=== PATIENT | female | born 1980 | race African-American/Black ===

== ENCOUNTER 2017-01-24 14:45 | Emergency (ER) | payer OTHER ==
[2017-01-24 15:05] VITALS: BP 144/78; PULSE 122; TEMP 98.4; BMI 36.6
--- NOTE | 2017-01-24 15:26 | PDOC ---
Post Exposure HPI - General Chief Complaint: Blood/Body Fluid Exposure [facility] Stated Complaint: INJURY TO HAND (WORK RELATED) Time Seen by Provider: 01/24/17 15:07 History Source: Patient Exam Limitations: No Limitations - History of Present Illness Initial Comments: CHIEF COMPLAINT: 36 y/o female, [employer] worker, here after blood borne exposure. HISTORY OF PRESENT ILLNESS: The patient states she cut her left 2nd finger on a razor that one of her patient's was using to shave his face. The patient has no record of HIV or HEP B/HEP C, however he refused HIV testing. The patient states she washed her affected hand with soap and water and scrubbed the area with alcohol swabs. Vital signs on arrival are notable for pulse of 122. REVIEW OF SYSTEMS: GENERAL/CONSTITUTIONAL: Subjective fever/chills. No weakness. No weight change. HEAD, EYES, EARS, NOSE AND THROAT: No change in vision. No ear pain or discharge. No sore throat. CARDIOVASCULAR: No chest pain or shortness of breath. RESPIRATORY: No cough, wheezing, or hemoptysis. GASTROINTESTINAL: No abd pain, nausea, vomiting diarrhea. GENITOURINARY: No dysuria, frequency, or change in urination. MUSCULOSKELETAL: No joint or muscle swelling or pain. No neck or back pain. SKIN: +cut to left finger NEUROLOGIC: No headache, vertigo, loss of consciousness, or loss of sensation. PHYSICAL EXAM: GENERAL: The patient is awake, alert, and fully oriented, in no acute distress. HEAD: Normal with no signs of trauma. ENT: Pupils equal, round and reactive to light, extraocular movements intact, sclera anicteric, conjunctiva clear. Neck supple. LUNGS: Clear to auscultation bilaterally. Normal excursion. No respiratory distress or use of accessory muscles. CV: RRR, S1/S2, no MRG. Cap refill < 2 sec. ABDOMEN: Soft, non-distended, non-tender even to deep palpation, no hepatomegaly or splenomegaly, no masses. EXTREMITIES: Normal range of motion, no edema. NEUROLOGICAL: Normal speech, normal gait. CN II-XII grossly intact. PSYCH: Normal mood, normal affect. SKIN: Very small, 0.5cm cut to the tip of left 2nd digit in between nail bed and finger tip. No active bleeding Past History - Past Medical History Allergies/Adverse Reactions: Allergies No Known Allergies Allergy (Verified 01/24/17 15:01) Home Medications: Ambulatory Orders Hiv Post Exposure Prophylaxis 1 each PO ASDIR #1 kit 01/24/17 Raltegravir [Isentress -] 400 mg PO BID #50 tab 01/24/17 Raltegravir [Isentress -] 400 mg PO BID #60 tab 01/24/17 - Social History Smoking Status: Never smoked *Physical Exam - Vital Signs Last Vital Signs Temp Pulse Resp BP Pulse Ox 98.4 F 122 H 19 144/78 99 01/24/17 15:01 01/24/17 15:01 01/24/17 15:01 01/24/17 15:01 01/24/17 15:01 Post Exposure - ED Protocol - Exposure Treatment Washing/Decontamination: Other (Soap, water and alcohol) Source Patient HIV Status:: Unknown Is PEP indicated?: No Prophylaxis for HIV discussed?: Yes Prophylaxis given?: Yes Prophylaxis refused?: No Drug(s) Information Sheets given:: Yes Baseline bloods drawn prophylaxis:(use *Exposure-Hosp Emp): Yes - Referrals Employee Referred to [facility]:: Yes Other Post Exposure pt. referral to PCP: Yes Medical Decision Making - Medical Decision Making A/P: 36 y/o female with blood borne exposure. explained everything to the patient including risks. She is requesting prophylaxis. Plan is as follows: 1. Baseline labs 2. HIV prophylaxis The patient states she had vaccines for HepB However, she states she is not UTD on tetanus. Ordered tetanus Pt instructed to f/u at [facility]. The patient verbalizes understanding of all instructions, has no further questions and is awaiting discharge. *DC/Admit/Observation/Transfer Diagnosis at time of Disposition: Exposure to blood or body fluid - Discharge Dispostion Disposition: HOME Condition at time of disposition: Good - Prescriptions Prescriptions: Hiv Post Exposure Prophylaxis 1 each PO ASDIR #1 kit Raltegravir [Isentress -] 400 mg PO BID #60 tab Raltegravir [Isentress -] 400 mg PO BID #50 tab - Referrals Referrals: Chandler Phillip MD [Primary Care Provider] - - Patient Instructions Printed Discharge Instructions: How to Handle Body Fluid Exposure -- Healthcare Worker - Post Discharge Activity Work/School Note: Back to Work
[2017-01-24] MEDS ORDERED: HIV POST EXPOSURE PROPHYLAXIS KIT NR ONE (15:40)
[2017-01-24 15:43] LABS: BASOPHIL 0.4 % (0-2.0); EOSINOPHIL 0.5 % (0-4.5); MCHC 29.5 g/dl (32.0-36.0); MEAN CELL VOLUME 61.9 fl (80-96); MEAN PLT VOLUME 7.6 fl (7.5-11.1); NEUTROPHILS 73.6 % (42.8-82.8); PLATELET COUNT 412 K/MM3 (134-434); RDW 18.2 % (11.6-15.6); WHITE BLOOD COUNT 12.7 K/mm3 (4.0-10.0)
[2017-01-24 15:44] LABS: MCH 18.3 pg (25.7-33.7)
[2017-01-24] MEDS ORDERED: HIV POST EXPOSURE PROPHYLAXIS KIT PO ONE (15:45)
[2017-01-24 16:02] LABS: ANISOCYTOSIS 2+; HYPOCHROMIA 2+; MICROCYTOSIS 2+; OVALOCYTES FEW; PLATELET ESTIMATE INCREASED (NORMAL); POIKILOCYTOSIS 1+; POLYCHROMASIA 1+; TARGET CELLS 1+
[2017-01-24 16:10] LABS: ALBUMIN 3.6 g/dl (3.4-5.0); ANION GAP 9 (8-16); BILIRUBIN,TOTAL 0.2 mg/dL (0.2-1.0); CALCIUM 8.9 mg/dL (8.5-10.1); CHOLESTEROL 146 mg/dL (50-200); CO2 24 mmol/L (21-32); CREATININE 0.7 mg/dL (0.55-1.02); GLUCOSE,RANDOM 96 mg/dL (74-106); LDH 240 U/L (84-246); PHOSPHOROUS 1.6 mg/dL (2.5-4.9); SGOT/AST 15 U/L (15-37); SGPT/ALT 18 U/L (12-78); TOT PROT 7.8 g/dl (6.4-8.2); URIC ACID 1.9 mg/dL (2.6-7.2)
[2017-01-24 16:11] LABS: ALK PHOS 98 U/L (45-117)
[2017-01-24] MEDS ORDERED: TETANUS AND DIPHTHERIA TOXOID 0.5 ML DISP.SYRIN IM ONE (16:27)
[2017-01-24 17:59] LABS: HIV 1 & 2 AB NEGATIVE; HIV 1 AGp24 NEGATIVE
[2017-01-27 14:12] LABS: HEP B SURFACE AB Reactive (.)
== END 2017-01-24 18:16 | disposition home or self-care (01) ==
LOC: JERFT 14:45
PROC: 3E0234Z Introduction of Serum, Toxoid and Vaccine into Muscle, Percutaneous Approach (ICD-10-PCS; principal; 2017-01-24)
DX: Z77.21 Contact with and (suspected) exposure to potentially hazardous body fluids (principal); S61.211A Laceration without foreign body of left index finger without damage to nail, initial encounter; W45.8XXA Other foreign body or object entering through skin, initial encounter; W27.8XXA Contact with other nonpowered hand tool, initial encounter; Y93.F9 Activity, other caregiving; Y92.230 Patient room in hospital as the place of occurrence of the external cause; Y99.0 Civilian activity done for income or pay
CPT/HCPCS: 36415; 80053; 82465; 82977; 83615; 84100; 84478; 84550; 85025; 86704; 86706; 87340; 87389; 99281-25

== ENCOUNTER 2021-03-14 06:36 | Day surgery (SDC) | payer BC ==
[2021-03-14] MEDS ORDERED: IRON SUCROSE INJECTION 200 MG in SODIUM CHLORIDE 100 ML IVPB ONE (10:00)
[2021-03-14 18:25] VITALS: TEMP 98.6
[2021-03-14 18:26] VITALS: BP 117/83; PULSE 76
== END 2021-03-14 18:05 | disposition home or self-care (01) ==
LOC: JONCNONCHE 06:36
PROVIDERS: ATTEND Specialist
PROC: 3E033GC Introduction of Other Therapeutic Substance into Peripheral Vein, Percutaneous Approach (ICD-10-PCS; principal; 2021-03-14)
DX: D50.9 Iron deficiency anemia, unspecified (principal); D72.829 Elevated white blood cell count, unspecified
CPT/HCPCS: 96365; J1756

== ENCOUNTER 2021-03-15 07:07 | Day surgery (SDC) | payer BC ==
[2021-03-15] MEDS ORDERED: IRON SUCROSE INJECTION 100 MG in SODIUM CHLORIDE 100 ML IVPB ONE (10:00)
[2021-03-15 17:00] VITALS: TEMP 98.4
[2021-03-15 17:35] VITALS: BP 93/54; PULSE 77
== END 2021-03-15 17:37 | disposition home or self-care (01) ==
LOC: JONCNONCHE 07:07
PROVIDERS: ATTEND Specialist
PROC: 3E033GC Introduction of Other Therapeutic Substance into Peripheral Vein, Percutaneous Approach (ICD-10-PCS; principal; 2021-03-15)
DX: D50.9 Iron deficiency anemia, unspecified (principal); D72.829 Elevated white blood cell count, unspecified
CPT/HCPCS: 96365; J1756

== ENCOUNTER 2021-03-16 07:45 | Day surgery (SDC) | payer BC ==
[2021-03-16] MEDS ORDERED: IRON SUCROSE INJECTION 200 MG in SODIUM CHLORIDE 100 ML IVPB ONE (10:00)
[2021-03-16 17:43] VITALS: TEMP 98.6
[2021-03-16 17:47] VITALS: BP 133/55; PULSE 72
== END 2021-03-16 17:15 | disposition home or self-care (01) ==
LOC: JONCNONCHE 07:45
PROVIDERS: ATTEND Specialist
PROC: 3E033GC Introduction of Other Therapeutic Substance into Peripheral Vein, Percutaneous Approach (ICD-10-PCS; principal; 2021-03-16)
DX: D50.9 Iron deficiency anemia, unspecified (principal)
CPT/HCPCS: 96365; J1756

== ENCOUNTER 2021-03-19 06:45 | Day surgery (SDC) | payer BC ==
[2021-03-19] MEDS ORDERED: IRON SUCROSE INJECTION 100 MG in SODIUM CHLORIDE 100 ML IVPB ONE (10:00)
[2021-03-19 17:33] VITALS: BP 113/63
[2021-03-19 17:34] VITALS: PULSE 63; TEMP 97.7
== END 2021-03-19 17:00 | disposition home or self-care (01) ==
LOC: JONCNONCHE 06:45
PROVIDERS: ATTEND Specialist
PROC: 3E033GC Introduction of Other Therapeutic Substance into Peripheral Vein, Percutaneous Approach (ICD-10-PCS; principal; 2021-03-19)
DX: D50.9 Iron deficiency anemia, unspecified (principal)
CPT/HCPCS: 96365; J1756

== ENCOUNTER 2021-03-20 07:18 | Day surgery (SDC) | payer BC ==
[2021-03-20] MEDS ORDERED: IRON SUCROSE INJECTION 100 MG in SODIUM CHLORIDE 100 ML IVPB ONE (10:00)
[2021-03-20 17:51] VITALS: BP 114/48; PULSE 82; TEMP 99.4
== END 2021-03-20 17:15 | disposition home or self-care (01) ==
LOC: JONCNONCHE 07:18
PROVIDERS: ATTEND Specialist
PROC: 3E033GC Introduction of Other Therapeutic Substance into Peripheral Vein, Percutaneous Approach (ICD-10-PCS; principal; 2021-03-20)
DX: D50.9 Iron deficiency anemia, unspecified (principal)
CPT/HCPCS: 96365; J1756

== ENCOUNTER 2021-05-03 06:26 | Day surgery (SDC) | payer BC ==
[2021-05-03] MEDS ORDERED: EPINEPHrine/PF 1 MG/1 ML (1:1,000) AMPULE IM PRN (10:00)
[2021-05-03] MEDS ORDERED: HYDROCORTISONE SOD SUCCINATE 100 MG/2 ML VIAL IVPB PRN (10:00)
[2021-05-03] MEDS ORDERED: FERRIC CARBOXYMALTOSE 750 MG in SODIUM CHLORIDE 250 ML IVPB ONE (10:00)
[2021-05-03] MEDS ORDERED: ALBUTEROL SO4 0.083% IH SOL 2.5 MG/3 ML VIAL.NEB. NEB PRN (10:00)
[2021-05-03 17:08] VITALS: TEMP 98.5
[2021-05-03 17:09] VITALS: BP 107/66; PULSE 81
== END 2021-05-03 17:12 | disposition home or self-care (01) ==
LOC: JONCNONCHE 06:26
PROVIDERS: ATTEND Internal Medicine Hematology & Oncology
PROC: 3E033GC Introduction of Other Therapeutic Substance into Peripheral Vein, Percutaneous Approach (ICD-10-PCS; principal; 2021-05-03)
DX: D50.9 Iron deficiency anemia, unspecified (principal)
CPT/HCPCS: 96365; J1439

== ENCOUNTER 2021-05-10 05:10 | Day surgery (SDC) | payer BC ==
[2021-05-10] MEDS ORDERED: EPINEPHrine/PF 1 MG/1 ML (1:1,000) AMPULE IM PRN (10:00)
[2021-05-10] MEDS ORDERED: FERRIC CARBOXYMALTOSE 750 MG in SODIUM CHLORIDE 250 ML IVPB ONE (10:00)
[2021-05-10] MEDS ORDERED: ALBUTEROL SO4 0.083% IH SOL 2.5 MG/3 ML VIAL.NEB. NEB PRN (10:00)
[2021-05-10] MEDS ORDERED: HYDROCORTISONE SOD SUCCINATE 100 MG/2 ML VIAL IVPUSH ONE (10:00)
[2021-05-10 17:31] VITALS: BP 116/75; PULSE 69; TEMP 97.7
== END 2021-05-10 17:33 | disposition home or self-care (01) ==
LOC: JONCNONCHE 05:10
PROVIDERS: ATTEND Internal Medicine Hematology & Oncology
DX: D50.9 Iron deficiency anemia, unspecified (principal)
CPT/HCPCS: 96365; J1439

== ENCOUNTER 2022-11-04 16:08 | Day surgery (SDC) | payer BC ==
[~2022-11-04 16:08] MED LIST: HYDROCORTISONE SOD SUCCINATE 100 MG/2 ML VIAL IVPB PRN; IRON SUCROSE INJECTION 200 MG in SODIUM CHLORIDE 100 ML IVPB ONE
[2022-11-04 16:24] VITALS: TEMP 98.2
[2022-11-04 17:16] VITALS: BP 107/63; PULSE 84; RESP 18
== END 2022-11-04 17:30 | disposition home or self-care (01) ==
LOC: JONCNONCHE 16:08 → J7W 16:08 → JONCNONCHE 17:30
PROVIDERS: ATTEND Specialist
PROC: 3E033GC Introduction of Other Therapeutic Substance into Peripheral Vein, Percutaneous Approach (ICD-10-PCS; principal; 2022-11-04)
DX: D50.9 Iron deficiency anemia, unspecified (principal)
CPT/HCPCS: 96365; J1756

== ENCOUNTER 2022-11-13 14:09 | Day surgery (SDC) | payer BC ==
[2022-11-13] MEDS ORDERED: IRON SUCROSE INJECTION 200 MG in SODIUM CHLORIDE 100 ML IVPB ONE (14:30)
[2022-11-13 18:25] VITALS: TEMP 98.2
[2022-11-13 18:28] VITALS: BP 105/60; PULSE 86; RESP 20
== END 2022-11-13 17:40 | disposition home or self-care (01) ==
LOC: JONCNONCHE 14:09
PROVIDERS: ATTEND Specialist
PROC: 3E033GC Introduction of Other Therapeutic Substance into Peripheral Vein, Percutaneous Approach (ICD-10-PCS; principal; 2022-11-13)
DX: D50.9 Iron deficiency anemia, unspecified (principal)
CPT/HCPCS: 96365; J1756

== ENCOUNTER 2022-11-15 08:22 | Day surgery (SDC) | payer BC ==
[2022-11-15] MEDS ORDERED: IRON SUCROSE INJECTION 200 MG in SODIUM CHLORIDE 100 ML IVPB ONE (10:00)
[2022-11-15 17:10] VITALS: TEMP 98.4
[2022-11-15 18:04] VITALS: BP 105/75; PULSE 81; RESP 18
== END 2022-11-15 17:00 | disposition home or self-care (01) ==
LOC: JONCNONCHE 08:22
PROVIDERS: ATTEND Specialist
PROC: 3E033GC Introduction of Other Therapeutic Substance into Peripheral Vein, Percutaneous Approach (ICD-10-PCS; principal; 2022-11-15)
DX: D50.9 Iron deficiency anemia, unspecified (principal)
CPT/HCPCS: 96365; J1756

== ENCOUNTER 2022-11-19 14:27 | Day surgery (SDC) | payer BC ==
[~2022-11-19 14:27] MED LIST changes: -HYDROCORTISONE SOD SUCCINATE 100 MG/2 ML VIAL IVPB PRN
[2022-11-19 17:22] VITALS: BP 123/57; PULSE 91; RESP 18; TEMP 98.2
== END 2022-11-19 17:24 | disposition home or self-care (01) ==
LOC: JONCNONCHE 14:27
PROVIDERS: ATTEND Specialist
PROC: 3E033GC Introduction of Other Therapeutic Substance into Peripheral Vein, Percutaneous Approach (ICD-10-PCS; principal; 2022-11-19)
DX: D50.9 Iron deficiency anemia, unspecified (principal)
CPT/HCPCS: 96365; J1756

== ENCOUNTER 2022-11-21 15:29 | Day surgery (SDC) | payer BC ==
[2022-11-21 18:52] VITALS: TEMP 99
[2022-11-21 18:55] VITALS: BP 113/51; PULSE 75; RESP 20
== END 2022-11-21 17:00 | disposition home or self-care (01) ==
LOC: JONCNONCHE 15:29
PROVIDERS: ATTEND Specialist
PROC: 3E033GC Introduction of Other Therapeutic Substance into Peripheral Vein, Percutaneous Approach (ICD-10-PCS; principal; 2022-11-21)
DX: D50.9 Iron deficiency anemia, unspecified (principal)
CPT/HCPCS: 96365; J1756

== ENCOUNTER 2022-11-27 10:03 | Day surgery (SDC) | payer BC ==
[2022-11-27 17:41] VITALS: RESP 18; TEMP 98
[2022-11-27 17:43] VITALS: BP 113/69; PULSE 71
== END 2022-11-27 17:30 | disposition home or self-care (01) ==
LOC: JONCNONCHE 10:03
PROVIDERS: ATTEND Specialist
PROC: 3E033GC Introduction of Other Therapeutic Substance into Peripheral Vein, Percutaneous Approach (ICD-10-PCS; principal; 2022-11-27)
DX: D50.9 Iron deficiency anemia, unspecified (principal)
CPT/HCPCS: 96365; J1756

== ENCOUNTER 2022-11-29 16:11 | Day surgery (SDC) | payer BC ==
[2022-11-29 18:12] VITALS: BP 93/58; PULSE 75; RESP 20; TEMP 98.4
== END 2022-11-29 18:15 | disposition home or self-care (01) ==
LOC: JONCNONCHE 16:11 → J7W 16:12 → JONCNONCHE 18:15
PROVIDERS: ATTEND Specialist
PROC: 3E033GC Introduction of Other Therapeutic Substance into Peripheral Vein, Percutaneous Approach (ICD-10-PCS; principal; 2022-11-29)
DX: D50.9 Iron deficiency anemia, unspecified (principal)
CPT/HCPCS: J1756

== ENCOUNTER 2023-04-11 10:15 | Day surgery (SDC) | payer BC ==
[2023-04-11] MEDS ORDERED: IRON SUCROSE COMPLEX 200 MG in SODIUM CHLORIDE 100 ML IVPB ONE (12:00)
[2023-04-11 16:42] VITALS: RESP 20; TEMP 98.9
[2023-04-11 17:53] VITALS: BP 104/73; PULSE 88
== END 2023-04-11 17:25 | disposition home or self-care (01) ==
LOC: JONCNONCHE 10:15 → J7W 10:16 → JONCNONCHE 17:25
PROVIDERS: ATTEND Specialist
PROC: 3E033GC Introduction of Other Therapeutic Substance into Peripheral Vein, Percutaneous Approach (ICD-10-PCS; principal; 2023-04-11)
DX: D50.9 Iron deficiency anemia, unspecified (principal)
CPT/HCPCS: 96365